=== PATIENT | female | born 1960 | race Caucasian/White ===

== ENCOUNTER 2019-10-10 16:26 | Emergency (ER) | payer OTHER ==
[~2019-10-10] VITALS: Ht 154.9 cm; Wt 89.8 kg
[2019-10-10] MEDS ORDERED: ANAPROX DS550 MG PO (18:31)
[2019-10-10] MEDS ORDERED: METHOCARBAMOL500 M1 PO (18:31)
== END 2019-10-10 18:50 | disposition home or self-care (01) ==
LOC: ED 16:26
DX: M54.2 Cervicalgia (principal); M25.511 Pain in right shoulder; M25.512 Pain in left shoulder; M54.6 Pain in thoracic spine; M54.5 Low back pain; Z88.0 Allergy status to penicillin; V03.99XA Pedestrian with other conveyance injured in collision with car, pick-up truck or van, unspecified whether traffic or nontraffic accident, initial encounter; W22.8XXA Striking against or struck by other objects, initial encounter; Y93.89 Activity, other specified; Y92.481 Parking lot as the place of occurrence of the external cause; Y99.8 Other external cause status

== ENCOUNTER 2023-05-27 17:48 | Emergency (ER) | payer OTHER ==
[~2023-05-27] VITALS: Ht 154.9 cm; Wt 87.1 kg
[~2023-05-27 17:48] MED LIST: ANAPROX DS550 MG PO; METHOCARBAMOL500 M1 PO
[2023-05-27] MEDS ORDERED: AMITRIPTYLINE50 MG PO (18:17)
[2023-05-27] MEDS ORDERED: LISINOPRIL5 MG PO (18:17)
[2023-05-27] MEDS ORDERED: LEVOTHYROXINE50 MCG PO (18:17)
[2023-05-27] MEDS ORDERED: HYDROCHLOROTHIA50 M1 PO (18:17)
[2023-05-27] MEDS ORDERED: GABAPENTIN600 MG PO (18:17)
[2023-05-27] MEDS ORDERED: OMEPRAZOLE40 MG PO (18:18)
[2023-05-27] MEDS ORDERED: VENT7GM INH (18:18)
[2023-05-27] MEDS ORDERED: FLOVENT HFA12 GM INH (18:18)
[2023-05-27] MEDS ORDERED: PRAVASTATIN SOD40 MG PO (18:19)
[2023-05-27 18:35] LABS: BASO % 0.4 % (0.0-1.0); EOS # 0.2 10*3/uL (0.0-0.4); EOS % 2.4 % (1.0-4.0); MEAN CELL VOLUME 89.4 fl (81.0-99.0); MEAN CORPUSCULAR HGB CONC 33.6 g/dl (33.0-37.0); MEAN PLATELET VOLUME 11.6 fl (9.6-12.3); MONO # 0.7 10*3/uL (0.1-1.0); MONO % 8.7 % (3.0-9.0); NEUT # 4.6 10*3/uL (2.3-7.9); NEUT % 61.2 % (47.0-73.0); PLATELET COUNT AUTOMATED 254 10*3/uL (130-400); RED CELL DISTRI WIDTH 13.6 % (0-14.5); WHITE BLOOD COUNT 7.6 10*3/uL (4.8-10.8)
[2023-05-27 19:02] LABS: ALKALINE PHOSPHATASE 79 U/L (46-116); BUN 14 mg/dl (9-23); CHLORIDE 106 mmol/L (98-107); LIPASE 47 U/L (12-53); POTASSIUM 3.4 mmol/L (3.4-5.1); SGPT/ALT 19 U/L (5-49); TOTAL PROTEIN 6.7 gm/dL (6.0-8.0)
[2023-05-27 19:05] LABS: ETHYL ALCOHOL < 3.0 mg/dl (<3)
[2023-05-27 21:04] LABS: BILIRUBIN Negative (Negative); BLOOD Negative (Negative); CLARITY Clear (Clear); COLOR Yellow (Yellow); GLUCOSE Negative (Negative); KETONE Negative (Negative); LEUKO ESTERASE Negative (Negative); NITRITE Negative (Negative); SPECIFIC GRAVITY 1.015 (1.001-1.030)
[2023-05-27 21:32] LABS: CALCIUM OXALATE CRYSTALS Trace; WBC 0-2 wbc/hpf (0-5)
[2023-05-27 21:33] LABS: BACTERIA TRACE; HYALINE CAST TNTC
== END 2023-05-27 23:37 | disposition home or self-care (01) ==
LOC: ED 17:48
PROVIDERS: Emergency Medicine
DX: E86.0 Dehydration (principal); Z20.822 Contact with and (suspected) exposure to COVID-19; R11.2 Nausea with vomiting, unspecified; R07.89 Other chest pain; R51.9 Headache, unspecified; I10 Essential (primary) hypertension; Z88.0 Allergy status to penicillin; Z79.899 Other long term (current) drug therapy